=== PATIENT | female | born 1960 | race Caucasian/White ===

== ENCOUNTER 2016-04-13 22:14 | Inpatient (IN) | payer MEDICAID ==
[2016-04-13 22:34] VITALS: BMI 25.0
[2016-04-13] MEDS ORDERED: SODIUM CHLORIDE 0.9% 10 ML FLUSH FLUSH PRN (23:02)
[2016-04-13 23:23] LABS: % OXYHEMOGLOBIN 93.1 % (95-98); ABG Draw Tech BKL; ALLEN'S TEST PASS; BEb 6.7 (+/- 2); CARBOXY HGB 3.1; O2 CONCENTRATION 15.6 VOL % (15.7-21.6); TCO2 34.4 MMOL/L (23-27)
[2016-04-13 23:24] LABS: ABG Draw Site Right Radial
[2016-04-13 23:59] LABS: AUTOMATED BASOPHIL 0.4 % (0-2); AUTOMATED EOSINOPHIL 1.5 % (0-5); AUTOMATED LYMPH 11.3 % (17-44); AUTOMATED MONOCYTE 9.5 % (3-10); AUTOMATED NEUTROPHIL 77.3 % (45-76); MPV 8.2 fL (7.4-10.4)
[2016-04-14] MEDS ORDERED: METHYLPREDNISOLONE 125 MG/2 ML VIAL IV ONE (00:06)
[2016-04-14] MEDS ORDERED: CEFTRIAXONE 1 GM in D5W 100 ML IV ONE (00:06)
[2016-04-14] MEDS ORDERED: Albuterol/Ipratropium Neb 3 ML NEB NEB ONE (00:06)
[2016-04-14] MEDS ORDERED: AZITHROMYCIN 500 MG in D5W 250 ML IV ONE (00:06)
--- NOTE | 2016-04-14 00:06 | EDPRACDOC ---
- General Information Information Source: Patient Mode Of Arrival: Car - History of Present Illness Onset: WEEKS HPI: PT PRESENTS TODAY WITH SHOB X 3 WEEKS. PT STATES SHE SEEN [facility] FOR THIS AND PRESCRIBED LEVAQUIN AND PREDNISONE, BUT IS NOT TAKING IT PRESCRIBED AND HAS NOT IMPROVED. STATES THAT LAST NIGHT SHE WAS SO SHOB SHE HAD TO "TURN MY OXYGEN UP ALL THE WAY". PT USUALLY WEARS 3 LMP. PT CONTINUES TO SMOKE. Shortness of Breath: Moderate Relevant History: Reports: COPD Cough: Reports: Productive, Green Rhinorrhea: Reports: None Ear Symptoms: Reports: None SOB Worsens with: Reports: Exertion, Coughing, ESCOBAR SOB Improves with: Reports: Rest Associated Signs and symptoms: Reports: Cough <Emmy Pond - Last Filed: 04/14/16 02:20> <Marco A Guaman - Last Filed: 04/14/16 02:23> - General Information Chief Complaint: Dyspnea/Resp distress Stated Complaint: SHOB Time Seen by Provider: 04/13/16 22:48 Home Medications: Home Medications Ascorbic Acid [Vitamin C] 1,000 mg PO BID 02/20/14 Gabapentin 600 mg PO TID 02/20/14 Lorazepam [Ativan] 0.5 - 1 mg PO DAILY PRN 02/20/14 Alendronate Sodium [Fosamax] 70 mg PO FR 01/14/15 Bupropion HCl [Wellbutrin Sr] 150 mg PO BID 01/14/15 Calcium Carbonate/Vitamin D3 [Calcium 600-Vit D3 800 Tablet] 1 tab PO BID Cyclobenzaprine HCl [Flexeril] 5 mg PO Q8H PRN 01/14/15 Fish Oil/Dha/Epa [Fish Oil 1,200 mg Fish Oil] 1 cap PO BID 01/14/15 Hydrocodone Bit/Acetaminophen [[place] 7.5-325 Tablet] 1 tab PO Q8H PRN 01/14/15 Lactobacillus Combination No.4 [Probiotic] 1 cap PO DAILY 01/14/15 Levothyroxine [Synthroid, Levoxyl] 50 mcg PO DAILY 01/14/15 Loratadine/Pseudoephedrine Sul [Claritin-D 12 Hour Tab SA] 1 tab PO Q12H Meloxicam 15 mg PO DAILY 01/14/15 Multivitamin [One-A-Day Essential] 1 tab PO DAILY 01/14/15 Promethazine [Phenergan] 25 mg PO QID PRN 01/14/15 Ropinirole HCl [Requip] 1 mg PO HS 01/14/15 Trazodone HCl [Oleptro ER] 75 mg PO HS 01/14/15 Zinc 50 mg PO BID 01/14/15 Albuterol Sulfate [Ventolin Hfa] 4 puff INH Q4H PRN #1 hfa.aer.ad 01/15/15 Paroxetine HCl [Paxil] 40 mg PO DAILY 05/30/15 Cyclobenzaprine HCl [Flexeril] 10 mg PO TID PRN #20 tablet 09/04/15 Prednisone [Deltasone, Orasone] 40 mg PO DAILY 5 Days 09/04/15 Cyclobenzaprine HCl [Flexeril] 10 mg PO TID #21 tab 01/16/16 Ketorolac Tromethamine [Toradol] 10 mg PO Q6H PRN #12 tab 01/16/16 Allergies/Adverse Reactions: Allergies Allergy/AdvReac Type Severity Reaction Status Date / Time morphine Allergy sick Verified 09/04/15 21:13 ED Past Medical History - History Reviewed Yes Nurses notes reviewed and agree except as marked - Patient Medical History Respiratory History: Reports: COPD Psychological History: Reports: Anxiety, Bipolar Disorder (borderline). Denies : Depression, Substance Use Disorder Systemic History: Reports: Cancer (MELONOMA RT ARM), Hypothyroidism. Denies: Diabetes Additional Past Medical History: CHRONIC BACK PAIN Surgical History: Reports: Cholecystectomy. Denies: Hysterectomy - Family Medical History Reports: Hypertension (Mother), Diabetes (Father and multiple sibs.), Cancer ( grandfather, prostate cancer), Cardiac Disorders (Father from complications of ID at 55 years old, Mother with VHD) - Social Medical History Smoking Status: Heavy tobacco smoker (5 or more cigarettes/day or daily pipe/ cigar) Social History: Denies: Substance Use Disorder <Emmy Pond - Last Filed: 04/14/16 02:20> EDM Review of Systems - Review of Systems ROS Negative Except as Marked: Yes All systems reviewed and were negative except as marked Constitutional: Fatigue, Weakness Eyes: No Symptoms Reported Ears: No Symptoms Reported Throat: No Symptoms Reported Nose: No Symptoms Reported Respiratory: Cough, Shortness of Breath, Wheezing Cardiovascular: No Symptoms Reported Gastrointestinal: No Symptoms Reported Neurological: No Symptoms Reported Musculoskeletal: No Symptoms Reported Integumentary: No Symptoms Reported <DejahEmmy - Last Filed: 04/14/16 02:20> - Physical Exam Constitutional: Alert (Awake), No apparent distress Oriented to: Time, Person, Place Last recorded Vital Signs: Last Vital Signs Temp 99.4 F 04/13/16 22:28 Pulse 94 04/13/16 22:28 Resp 22 04/13/16 22:28 BP 120/66 04/13/16 22:28 Pulse Ox 95 04/13/16 22:28 Oxygen Pulse Oxygen Saturation 95 O2 Device Nasal Cannula Oxygen Flow Rate 3 Fraction of Inspired Oxygen ( FIO2) - HEENT Head: Normal Eye Exam: Normal Oropharynx: Normal Tympanic Membrane: Normal ENT EAC: Normal Nose: No Symptoms Reported Neck: Normal, Denies Pain, Midline - Respiratory/Cardiovascular Respiratory: Diminished (AT BILATERAL BASES), Rhonchi, Wheezes Cardiovascular: Normal - GI Palpation: Normal Tenderness: Non tender - Musculoskeletal Back: Normal Extremities: Normal - Integumentary Skin: Normal Lymphatics: Normal - Neurologic Cerebellar: Normal Mood Description: Normal Thought: Coherent Perception: Normal <Emmy Pond - Last Filed: 04/14/16 02:20> - Physical Exam Last recorded Vital Signs: Last Vital Signs Temp 99.4 F 04/13/16 22:28 Pulse 94 04/13/16 22:28 Resp 22 04/13/16 22:28 BP 120/66 04/13/16 22:28 Pulse Ox 95 04/13/16 22:28 Oxygen Pulse Oxygen Saturation 95 O2 Device Nasal Cannula Oxygen Flow Rate 3 Fraction of Inspired Oxygen ( FIO2) <Marco A Guaman - Last Filed: 04/14/16 02:23> ED SOB MDM - Results Result Diagrams: 04/13/16 23:37 04/13/16 23:37 Results: Puncture Site Right radial 04/13/16 23:15 pCO2 53.0 mmHg (35-45) H 04/13/16 23:15 pO2 77.0 mmHg (80-100) L 04/13/16 23:15 HCO3 32.8 MMOL/L (22-26) H 04/13/16 23:15 Total CO2 34.4 MMOL/L (23-27) H 04/13/16 23:15 Base Excess 6.7 (+/- 2) H 04/13/16 23:15 Collected by Bkl 04/13/16 23:15 ABG pH 7.400 pH UNITS (7.35-7.45) 04/13/16 23:15 ABG Oxyhemoglobin 93.1 % (95-98) L 04/13/16 23:15 ABG Carboxyhemoglobin 3.1 04/13/16 23:15 ABG Methemoglobin 1.0 % (<3.0) 04/13/16 23:15 Total O2 Concentration 15.6 VOL % (15.7-21.6) L 04/13/16 23:15 Lab Results 04/13/16 23:15 Puncture Site Right radial pCO2 53.0 H pO2 77.0 L HCO3 32.8 H Total CO2 34.4 H Base Excess 6.7 H Collected by Bkl ABG pH 7.400 ABG Oxyhemoglobin 93.1 L ABG Carboxyhemoglobin 3.1 ABG Methemoglobin 1.0 Total O2 Concentration 15.6 L - EKG EKG #1 EKG Time: 22:46 -: Yes EKG interpreted by me Rate: bpm: 94 [place]: Normal Rhythm: NSR Block: None Hypertrophy: None ST: Normal Comparison: 05/30/15 <Emmy Pond - Last Filed: 04/14/16 02:20> - Results Result Diagrams: 04/13/16 23:37 04/13/16 23:37 Results: WBC 8.3 xk/uL (3.8-10.8) 04/13/16 23:37 RBC 3.97 xM/uL (4.20-5.40) L 04/13/16 23:37 Hgb 13.3 g/dL (12.0-16.0) 04/13/16 23:37 Hct 39.3 % (36-47) 04/13/16 23:37 MCV 99 fL (81-99) 04/13/16 23:37 MCH 33.5 pg (27-32) H 04/13/16 23:37 MCHC 33.8 g/dl (33-36) 04/13/16 23:37 RDW 14.4 % (11.5-14.5) 04/13/16 23:37 Plt Count 73 xk/uL (130-400) L 04/13/16 23:37 MPV 8.2 fL (7.4-10.4) 04/13/16 23:37 Neut % (Auto) 77.3 % (45-76) H 04/13/16 23:37 Lymph % (Auto) 11.3 % (17-44) L 04/13/16 23:37 Reagan % (Auto) 9.5 % (3-10) 04/13/16 23:37 Eos % (Auto) 1.5 % (0-5) 04/13/16 23:37 Baso % (Auto) 0.4 % (0-2) 04/13/16 23:37 Absolute Neuts (auto) 6.39 xk/uL (1.7-8.2) 04/13/16 23:37 Absolute Lymphs (auto) 0.91 xk/uL (0.65-4.75) 04/13/16 23:37 Platelet Estimate Dec (NORMAL) 04/13/16 23:37 RBC Morphology 1+ aniso 04/13/16 23:37 PT 11.2 SEC (9.2-11.2) 04/13/16 23:37 INR 1.1 04/13/16 23:37 APTT 27.2 SEC (22-35) 04/13/16 23:37 Puncture Site Right radial 04/13/16 23:15 pCO2 53.0 mmHg (35-45) H 04/13/16 23:15 pO2 77.0 mmHg (80-100) L 04/13/16 23:15 HCO3 32.8 MMOL/L (22-26) H 04/13/16 23:15 Total CO2 34.4 MMOL/L (23-27) H 04/13/16 23:15 Base Excess 6.7 (+/- 2) H 04/13/16 23:15 Collected by Bkl 04/13/16 23:15 ABG pH 7.400 pH UNITS (7.35-7.45) 04/13/16 23:15 ABG Oxyhemoglobin 93.1 % (95-98) L 04/13/16 23:15 ABG Carboxyhemoglobin 3.1 04/13/16 23:15 ABG Methemoglobin 1.0 % (<3.0) 04/13/16 23:15 Total O2 Concentration 15.6 VOL % (15.7-21.6) L 04/13/16 23:15 Sodium 137 mEq/L (137-146) 04/13/16 23:37 Potassium 3.6 mEq/L (3.5-5.1) 04/13/16 23:37 Chloride 100 mEq/L (98-107) 04/13/16 23:37 Carbon Dioxide 32 mMOL/L (22-33) 04/13/16 23:37 Anion Gap 9 mEq/L (8-16) 04/13/16 23:37 BUN 8 MG/DL (7-17) 04/13/16 23:37 Creatinine 0.60 MG/DL (0.52-1.04) 04/13/16 23:37 Estimated GFR (MDRD) > 60 mL/min (>=60) 04/13/16 23:37 Glucose 81 mg/dL (70-99) 04/13/16 23:37 Calculated Osmolality 261 MOs/Kg (270-290) L 04/13/16 23:37 Calcium 8.4 MG/DL (8.4-10.2) 04/13/16 23:37 Corrected Calcium 8.8 MG/DL (8.4-10.2) 04/13/16 23:37 Total Bilirubin 0.8 MG/DL (0.2-1.3) 04/13/16 23:37 AST 24 IU/L (14-36) 04/13/16 23:37 ALT 24 IU/L (9-52) 04/13/16 23:37 Alkaline Phosphatase 49 IU/L (38-126) 04/13/16 23:37 Troponin I < 0.01 ng/mL (<.04) 04/13/16 23:37 Total Protein 6.3 G/DL (6.3-8.2) 04/13/16 23:37 Albumin 3.6 G/DL (3.5-5.0) 04/13/16 23:37 Lab Results 04/13/16 04/13/16 04/13/16 23:37 23:37 23:37 WBC 8.3 RBC 3.97 L Hgb 13.3 Hct 39.3 MCV 99 MCH 33.5 H MCHC 33.8 RDW 14.4 Plt Count 73 L MPV 8.2 Neut % (Auto) 77.3 H Lymph % (Auto) 11.3 L [place] % (Auto) 9.5 Eos % (Auto) 1.5 Baso % (Auto) 0.4 Absolute Neuts (auto) 6.39 Absolute Lymphs (auto) 0.91 Platelet Estimate Dec RBC Morphology 1+ aniso PT 11.2 INR 1.1 APTT 27.2 Puncture Site pCO2 pO2 HCO3 Total CO2 Base Excess Collected by ABG pH ABG Oxyhemoglobin ABG Carboxyhemoglobin ABG Methemoglobin Total O2 Concentration Sodium 137 Potassium 3.6 Chloride 100 Carbon Dioxide 32 Anion Gap 9 BUN 8 Creatinine 0.60 Estimated GFR (MDRD) > 60 Glucose 81 Calculated Osmolality 261 L Calcium 8.4 Corrected Calcium 8.8 Total Bilirubin 0.8 AST 24 ALT 24 Alkaline Phosphatase 49 Troponin I < 0.01 Total Protein 6.3 Albumin 3.6 04/13/16 23:15 WBC RBC Hgb Hct MCV MCH MCHC RDW Plt Count MPV Neut % (Auto) Lymph % (Auto) Reagan % (Auto) Eos % (Auto) Baso % (Auto) Absolute Neuts (auto) Absolute Lymphs (auto) Platelet Estimate RBC Morphology PT INR APTT Puncture Site Right radial pCO2 53.0 H pO2 77.0 L HCO3 32.8 H Total CO2 34.4 H Base Excess 6.7 H Collected by Bkl ABG pH 7.400 ABG Oxyhemoglobin 93.1 L ABG Carboxyhemoglobin 3.1 ABG Methemoglobin 1.0 Total O2 Concentration 15.6 L Sodium Potassium Chloride Carbon Dioxide Anion Gap BUN Creatinine Estimated GFR (MDRD) Glucose Calculated Osmolality Calcium Corrected Calcium Total Bilirubin AST ALT Alkaline Phosphatase Troponin I Total Protein Albumin <Marco A Guaman - Last Filed: 04/14/16 02:23> - Departure Disposition: Admit IP To This Hospital Decision to Admit Time: 02:21 Decision to admit date: 04/14/16 Decision to admit: from ED <Emmy Pond - Last Filed: 04/14/16 02:20> - Departure Yes I personally saw and evaluated the patient. Disposition: Admit IP To This Hospital - Physician Consulted Hospitalist Time Called: 02:23 Provider Called: Marky Sharp Time [employer]rim[employer] Returned Call: 02:23 <Marco A Guaman - Last Filed: 04/14/16 02:23> - Departure Condition: Stable Final Diagnosis: COPD with acute lower respiratory infection, Pneumonia Referrals: Kiara Muhammad MD [Primary Care Provider] - One Week Prescriptions: No Action Lorazepam [Ativan] 0.5 - 1 mg PO DAILY PRN PRN Reason: Anxiety Gabapentin 600 mg PO TID Ascorbic Acid [Vitamin C] 1,000 mg PO BID Alendronate Sodium [Fosamax] 70 mg PO FR Meloxicam 15 mg PO DAILY Lactobacillus Combination No.4 [Probiotic] 1 cap PO DAILY Promethazine [Phenergan] 25 mg PO QID PRN PRN Reason: Nausea Cyclobenzaprine HCl [Flexeril] 5 mg PO Q8H PRN PRN Reason: Muscle Spasms Fish Oil/Dha/Epa [Fish Oil 1,200 mg Fish Oil] 1 cap PO BID Zinc 50 mg PO BID Multivitamin [One-A-Day Essential] 1 tab PO DAILY Trazodone HCl [Oleptro ER] 75 mg PO HS Loratadine/Pseudoephedrine Sul [Claritin-D 12 Hour Tab SA] 1 tab PO Q12H Levothyroxine [Synthroid, Levoxyl] 50 mcg PO DAILY Ropinirole HCl [Requip] 1 mg PO HS Hydrocodone Bit/Acetaminophen [[place] 7.5-325 Tablet] 1 tab PO Q8H PRN PRN Reason: Pain Bupropion HCl [Wellbutrin Sr] 150 mg PO BID Calcium Carbonate/Vitamin D3 [Calcium 600-Vit D3 800 Tablet] 1 tab PO BID Albuterol Sulfate [Ventolin Hfa] 4 puff INH Q4H PRN #1 hfa.aer.ad PRN Reason: SHORTNESS OF BREATH Paroxetine HCl [Paxil] 40 mg PO DAILY Cyclobenzaprine HCl [Flexeril] 10 mg PO TID PRN #20 tablet PRN Reason: Muscle Spasms Prednisone [Deltasone, Orasone] 40 mg PO DAILY 5 Days Cyclobenzaprine HCl [Flexeril] 10 mg PO TID #21 tab Ketorolac Tromethamine [Toradol] 10 mg PO Q6H PRN #12 tab PRN Reason: Pain
[2016-04-14 00:08] LABS: PARTIAL THROMB. TIME 27.2 SEC (22-35); PT-INR 1.1
[2016-04-14 00:09] LABS: BLOOD UREA NITROGEN 8 MG/DL (7-17); CALC CORRECTED 8.8 MG/DL (8.4-10.2); CALCIUM 8.4 MG/DL (8.4-10.2); CALCULATED OSMOLALITY 261 MOs/Kg (270-290); CHLORIDE 100 mEq/L (98-107); GLUCOSE 81 mg/dL (70-99); SODIUM LEVEL 137 mEq/L (137-146); TOTAL PROTEIN 6.3 G/DL (6.3-8.2)
--- NOTE | 2016-04-14 00:31 | DIRPT ---
CLINICAL DATA: Cough, shortness of breath, chest pain and wheezing for 2 weeks. EXAM: CHEST 2 VIEW COMPARISON: Radiographs 03/18/2016, CT 05/30/2015 FINDINGS: Increased hyperinflation from prior. Increased bronchitic change. No confluent airspace disease. Heart at the upper limits normal in size. No pleural effusion or pneumothorax. No pulmonary edema. No acute osseous abnormalities. IMPRESSION: Increased hyperinflation and bronchitic change from prior exam, suggesting acute bronchitis. Electronically Signed By: Sylvia Vazquez M.D. On: 04/14/2016 00:28
[2016-04-14] MEDS ORDERED: ALBUTEROL 0.083% 3 ML NEB NEB STA (02:20)
--- NOTE | 2016-04-14 02:35 | HISTPHYS ---
- Chief Complaint shortness of breath - History of Present Illness PRIMARY CARE PROVIDER: Dr. Muhammad LIVER SPECIALIST: Dr. Stein at [facility] HPI: The patient is a 56 yo woman with COPD who presents with progressive shortness of breath. It started shortly after Jeni (over a month ago), and she has received multiple treatments by her primary care office and the urgent care. The treatments were prednisone tapers and various antibiotics. She has been using her inhalers/nebulizer but she did decrease use of these. Last night, she became much more short of breath, and felt like she could not breathe at all. She said she has an old oxygen tank at home from about 2014, so she tried to use it overnight, but when she got up in the morning, she could not breathe at all. She was using her nebulizer and she was so weak she could not move. She reports she continued to stay at home. She has a pulse oxygen machine at home and it showed O2 sats of 78%. Onset: Over 1 month ago but worse in the last 2 days. Duration: intermittent. Character: severe shortness of breath, even while sitting. Alleviated by: Nothing. Exacerbated by: walking. Associated Symptoms: Coughing. Wheezing. Shortness of breath. Diaphoresis. Treatments: none at home except usual medications. The patient reports that she used to drink alcohol heavily but quit 20 years ago , but then restarted about 2 weeks ago. She states she has been drinking most days since then, about 2-5 cans of beer per day. Her last dink was 2 days ago. - Medical History Respiratory History: Reports: COPD (and PUNCTURED R LUNG 2003.) GI/ History: Reports: Liver Failure (LIVER DISEASE. AUTOIMMUNE HEPATITIS 2010. ) Systemic History: Reports: Cancer (MELONOMA RT ARM), Hypothyroidism Psychological History: Reports: Anxiety, Bipolar Disorder (borderline) - Surgical History Reports: Cholecystectomy. Denies: Hysterectomy - Medictions/Allergies Allergies morphine Allergy (Verified 09/04/15 21:13) sick Current Medication List: Reviewed Home Medications Ascorbic Acid [Vitamin C] 1,000 mg PO BID 02/20/14 Gabapentin 600 mg PO TID 02/20/14 Lorazepam [Ativan] 0.5 - 1 mg PO DAILY PRN 02/20/14 Alendronate Sodium [Fosamax] 70 mg PO FR 01/14/15 Bupropion HCl [Wellbutrin Sr] 150 mg PO BID 01/14/15 Calcium Carbonate/Vitamin D3 [Calcium 600-Vit D3 800 Tablet] 1 tab PO BID Cyclobenzaprine HCl [Flexeril] 5 mg PO Q8H PRN 01/14/15 Fish Oil/Dha/Epa [Fish Oil 1,200 mg Fish Oil] 1 cap PO BID 01/14/15 Hydrocodone Bit/Acetaminophen [[place] 7.5-325 Tablet] 1 tab PO Q8H PRN 01/14/15 Lactobacillus Combination No.4 [Probiotic] 1 cap PO DAILY 01/14/15 Levothyroxine [Synthroid, Levoxyl] 50 mcg PO DAILY 01/14/15 Loratadine/Pseudoephedrine Sul [Claritin-D 12 Hour Tab SA] 1 tab PO Q12H Meloxicam 15 mg PO DAILY 01/14/15 Multivitamin [One-A-Day Essential] 1 tab PO DAILY 01/14/15 Promethazine [Phenergan] 25 mg PO QID PRN 01/14/15 Ropinirole HCl [Requip] 1 mg PO HS 01/14/15 Trazodone HCl [Oleptro ER] 75 mg PO HS 01/14/15 Zinc 50 mg PO BID 01/14/15 Albuterol Sulfate [Ventolin Hfa] 4 puff INH Q4H PRN #1 hfa.aer.ad 01/15/15 Paroxetine HCl [Paxil] 40 mg PO DAILY 05/30/15 Cyclobenzaprine HCl [Flexeril] 10 mg PO TID PRN #20 tablet 09/04/15 Prednisone [Deltasone, Orasone] 40 mg PO DAILY 5 Days 09/04/15 Cyclobenzaprine HCl [Flexeril] 10 mg PO TID #21 tab 01/16/16 Ketorolac Tromethamine [Toradol] 10 mg PO Q6H PRN #12 tab 01/16/16 - Family History Reports: Hypertension (Mother), Diabetes (Father and multiple sibs.), Cancer ( grandfather, prostate cancer), Cardiac Disorders (Father from complications of MD at 55 years old, Mother with VHD) - Social History Smoking Status: Heavy tobacco smoker (5 or more cigarettes/day or daily pipe/ cigar) (3/4 to 1 ppd. Started age 17 yo.) Social History: Reports: Alcohol Use. Denies: Substance Use Disorder - Review of Systems GENERAL: No Fever, chills. Diaphoresis. Positive for fatigue/malaise. HEENT: No ear pain or discharge. No nasal discharge or bleeding. No throat pain or swelling. No eye pain or eye redness. RESPIRATORY: Cough, wheezing, and shortness of breath. CARDIOVASCULAR: No chest pain or palpitations. GI: RUQ chronic since 2009. Chronic constipation. No nausea, vomiting, diarrhea , or bloody stool. NEUROLOGICAL: No headache or focal weakness. INTEGUMENT: no rashes, itching, or lesions. LYMPHATIC SYSTEM: no lymph node swelling or pain. MUSCULOSKELETAL: no new pain or joint swelling. GENITOURINARY: No dysuria or hematuria. ENDOCRINE: No polyuria but has polydipsia. HEME: No chronic anemia, bleeding. Positive for easy bruising. - Physical Exam Vital Signs: Initial Vitals Temperature 99.4 F 04/13/16 22:28 Pulse Rate 94 04/13/16 22:28 Respiratory Rate 22 04/13/16 22:28 Blood Pressure 120/66 04/13/16 22:28 Pulse Oxygen Saturation 95 04/13/16 22:28 Vital Signs - 24 hr 04/13/16 22:28 Temperature 99.4 F Pulse Rate 94 Respiratory 22 Rate Blood Pressure 120/66 Pulse Oxygen 95 Saturation Weight: 63.9 kg Height: 5 feet 3 inches BMI: 25 - Other Exam Other Exam Findings: GENERAL: Ill-appearing, well nourished, in acute distress. HEENT: Normocephalic, atraumatic; pupils equal and round. Nares patent, without discharge or bleeding. No oropharyngeal lesions or erythema. Mucous membranes are dry. NECK: is supple, no masses, trachea midline. RESPIRATORY: Clear to auscultation bilaterally. Chest wall movements are symmetric. Use of accessory muscles to breathe when she attempts to stand or take a few steps. Tachypnea. Bilateral scattered wheezing. Decreased breath sounds. CARDIOVASCULAR: Normal S1, S2. No murmurs, rubs, or gallops. PMI non-displaced. Carotids: no carotid bruits. No bradycardia or tachycardia. DP pulses 2+ bilaterally. GI: soft, non-distended, normal active bowel sounds. No hepatosplenomegaly. Mild right upper quadrant tenderness. INTEGUMENT: Clean, dry, and intact. No rashes. No lesions. MUSCULOSKELETAL: Moving all extremities. Clubbing. No cyanosis. Edema: none bilaterally. NEUROLOGICAL: Cranial nerves 2-12 grossly intact. Motor 4/5 throughout. Reflexes : 2+ bilaterally. Babinski: toes downgoing bilaterally. Intact Finger to nose. Sensory grossly intact to light touch. Intact rapid alternating movements bilaterally. No pronator drift. PSYCHIATRIC: Fully oriented. Anxious affect and tearful. LYMPHATIC: No cervical lymphadenopathy. No supraclavicular lymphadenopathy. - Lab Results Laboratory Results - last 24 hr 04/13/16 04/13/16 04/13/16 23:15 23:37 23:37 WBC 8.3 RBC 3.97 L Hgb 13.3 Hct 39.3 MCV 99 MCH 33.5 H MCHC 33.8 RDW 14.4 Plt Count 73 L MPV 8.2 Neut % (Auto) 77.3 H Lymph % (Auto) 11.3 L [place] % (Auto) 9.5 Eos % (Auto) 1.5 Baso % (Auto) 0.4 Absolute Neuts (auto) 6.39 Absolute Lymphs (auto) 0.91 Platelet Estimate Dec RBC Morphology 1+ aniso PT INR APTT Puncture Site Right radial pCO2 53.0 H pO2 77.0 L HCO3 32.8 H Total CO2 34.4 H Base Excess 6.7 H Collected by Bkl ABG pH 7.400 ABG Oxyhemoglobin 93.1 L ABG Carboxyhemoglobin 3.1 ABG Methemoglobin 1.0 Total O2 Concentration 15.6 L Sodium 137 Potassium 3.6 Chloride 100 Carbon Dioxide 32 Anion Gap 9 BUN 8 Creatinine 0.60 Estimated GFR (MDRD) > 60 Glucose 81 Calculated Osmolality 261 L Calcium 8.4 Corrected Calcium 8.8 Total Bilirubin 0.8 AST 24 ALT 24 Alkaline Phosphatase 49 Troponin I < 0.01 Total Protein 6.3 Albumin 3.6 04/13/16 23:37 WBC RBC Hgb Hct MCV MCH MCHC RDW Plt Count MPV Neut % (Auto) Lymph % (Auto) [place] % (Auto) Eos % (Auto) Baso % (Auto) Absolute Neuts (auto) Absolute Lymphs (auto) Platelet Estimate RBC Morphology PT 11.2 INR 1.1 APTT 27.2 Puncture Site pCO2 pO2 HCO3 Total CO2 Base Excess Collected by ABG pH ABG Oxyhemoglobin ABG Carboxyhemoglobin ABG Methemoglobin Total O2 Concentration Sodium Potassium Chloride Carbon Dioxide Anion Gap BUN Creatinine Estimated GFR (MDRD) Glucose Calculated Osmolality Calcium Corrected Calcium Total Bilirubin AST ALT Alkaline Phosphatase Troponin I Total Protein Albumin - Diagnostic Findings EK beats per minute. Normal sinus rhythm. Reviewed EKG personally. Chest x-ray, viewed personally: EXAM: CHEST 2 VIEW COMPARISON: Radiographs 03/18/2016, CT 05/30/2015 FINDINGS: Increased hyperinflation from prior. Increased bronchitic change. No confluent airspace disease. Heart at the upper limits normal in size. No pleural effusion or pneumothorax. No pulmonary edema. No acute osseous abnormalities. IMPRESSION: Increased hyperinflation and bronchitic change from prior exam, suggesting acute bronchitis. - Assessment (1) COPD exacerbation J44.1 - CHRONIC OBSTRUCTIVE PULMONARY DISEASE W (ACUTE) EXACERBATION Acute Present on Admission: Yes COPD exacerbation, severe. Plan: Nebs of Duoneb q 6 hours scheduled and albuterol q 2 hours prn. Sputum culture ordered. IV ceftriaxone and IV azithromycin. IV methylprednisolone. Continuous oxygen support. Keep sats below 95% due to COPD. (2) Dyspnea R06.00 - DYSPNEA, UNSPECIFIED Acute Present on Admission: Yes Plan: O2 by NC prn. (3) Tobacco abuse Z72.0 - TOBACCO USE Acute Present on Admission: Yes Counseled to quit. (4) Thrombocytopenia D69.6 - THROMBOCYTOPENIA, UNSPECIFIED Acute Present on Admission: Yes Acute on chronic issue. Mildly low. Plan: Monitor CBC. (5) Alcohol abuse F10.10 - ALCOHOL ABUSE, UNCOMPLICATED Acute Present on Admission: Yes Patient started drinking again 2 weeks ago after having quit for 20 years. Patient is very tearful and sorrowful about the fact that she started again. Plan: Detox protocol. Check blood alcohol level. Start patient on prn Ativan for breakthrough symptoms. Magnesium, phosphorus, other labs ordered. Give IV thiamine/folate/MVI now, then eventually start patient on PO thiamine/ MVI. Nurse to monitor patient closely and check withdrawal symptom scores. Patient advised to stop drinking but to do so under medical supervision because of DT's risk. Patient advised to take thiamine and multivitamin daily after discharge. Patient encouraged to return to Alcoholics Anonymous meetings and to reconnect with her sponsor. Case Care Discussed with: Patient, Nursing Staff
[2016-04-14] MEDS ORDERED: LORAZEPAM 2 MG/ML VIAL IV ONE (03:10)
[2016-04-14] MEDS ORDERED: Aluminum;Magnesium;Simethicone 30 ML UDC PO PRN (03:40)
[2016-04-14] MEDS ORDERED: BENZONATATE 100 MG PERLES PO PRN (03:40)
[2016-04-14] MEDS ORDERED: BISACODYL 5 MG TAB PO PRN (03:40)
[2016-04-14] MEDS ORDERED: TEMAZEPAM 15 MG CAP PO PRN (03:40)
[2016-04-14] MEDS ORDERED: GUAIFEN 100 MG-DEXTROMETH 10 MG PER 5 ML PO PRN (03:40)
[2016-04-14] MEDS ORDERED: PROMETHAZINE 25 MG/ML VIAL IV PRN (03:40)
[2016-04-14] MEDS ORDERED: SENNA CONCENTRATE TAB PO PRN (03:40)
[2016-04-14] MEDS ORDERED: ONDANSETRON HCL 4 MG/2 ML VIAL IV PRN (03:40)
[2016-04-14] MEDS ORDERED: ACETAMINOPHEN 325 MG SUPP PR PRN (03:40)
[2016-04-14] MEDS ORDERED: LORAZEPAM 2 MG/ML VIAL IV PRN ×3 (04:17)
[2016-04-14] MEDS ORDERED: LORAZEPAM 1 MG TAB PO PRN ×2 (04:17)
[2016-04-14] MEDS: NS 1,000 ML IV SCH (04:36)
[2016-04-14] MEDS: FOLIC ACID 1 MG, THIAMINE 100 MG, VITAMINS, MULTIPLE 10 ML in NS 1,000 ML IV SCH ×4 (04:46)
[2016-04-14] MEDS ORDERED: Alcohol Withdrawal Scale Orders XX SCH (05:00)
[2016-04-14 05:25] LABS: MPV 8.4 fL (7.4-10.4)
[2016-04-14] MEDS: ACETAMINOPHEN 325 MG/TAB TABLET PO PRN (05:35)
[2016-04-14 05:39] LABS: BLOOD UREA NITROGEN 8 MG/DL (7-17); CALCIUM 8.4 MG/DL (8.4-10.2); CALCULATED OSMOLALITY 266 MOs/Kg (270-290); CHLORIDE 101 mEq/L (98-107); GLUCOSE 133 mg/dL (70-99); SODIUM LEVEL 138 mEq/L (137-146)
[2016-04-14] MEDS ORDERED: LORATADINE PO SCH (06:45)
[2016-04-14] MEDS ORDERED: [UNRECOGNIZED DRUG - OTHER] PO SCH (06:45)
[2016-04-14 07:23] LABS: ETOH-MGDL < 10 mg/dL
[2016-04-14] MEDS ORDERED: Non-Formulary Medication ITEM (Gabapentin [Gabapentin] 600 MG) PO SCH (07:30)
[2016-04-14] MEDS: Albuterol/Ipratropium Neb 3 ML NEB NEB SCH ×3 (07:55→21:29)
[2016-04-14] MEDS: BUDESONIDE 0.5 MG NEB NEB SCH ×2 (08:00→21:34)
[2016-04-14] MEDS: POTASSIUM CHLORIDE 20 MEQ TAB PO SCH ×2 (08:23→17:17)
[2016-04-14] MEDS: OMEGA-3-ACID ETHYL ESTERS 1000 MG CAP PO SCH ×2 (08:23→20:14)
[2016-04-14] MEDS: PAROXETINE 20 MG TAB PO SCH (08:24)
[2016-04-14] MEDS: METHYLPREDNISOLONE 125 MG/2 ML VIAL IV SCH ×3 (08:24→17:18)
[2016-04-14] MEDS: BuPROPion (BID formulation) 100 MG TAB.SR.12H PO SCH ×2 (08:25→20:13)
[2016-04-14] MEDS: PSEUDOEPHEDRINE 120 MG PO SCH ×2 (08:25→20:12)
[2016-04-14] MEDS: Loratadine 10 MG TAB PO SCH ×2 (08:26→20:12)
[2016-04-14] MEDS: GABAPENTIN 300 MG CAP PO SCH ×3 (08:27→20:12)
[2016-04-14] MEDS: LEVOTHYROXINE 50 MCG (0.05 MG) TAB PO SCH (08:29)
[2016-04-14] MEDS: PANTOPRAZOLE 40 MG TAB PO SCH (08:30)
[2016-04-14] MEDS: MELOXICAM 7.5 MG TAB PO SCH (08:31)
[2016-04-14] MEDS: OXYCODONE (OxyCONTIN) 20 MG TAB PO SCH ×2 (08:34→20:11)
[2016-04-14] MEDS ORDERED: UBIDECARENONE 100 MG PO SCH (09:00)
[2016-04-14] MEDS ORDERED: EPA PO SCH (09:00)
[2016-04-14] MEDS ORDERED: DHA PO SCH (09:00)
[2016-04-14] MEDS ORDERED: Non-Formulary Medication ITEM (Meloxicam [Meloxicam] 15 MG) PO SCH (09:00)
[2016-04-14] MEDS ORDERED: PAROXETINE HCL 40 MG PO SCH (09:00)
[2016-04-14] MEDS ORDERED: Non-Formulary Medication ITEM (Omeprazole 20 MG) PO SCH (09:00)
[2016-04-14] MEDS ORDERED: Non-Formulary Medication ITEM (Budesonide/Formoterol Fumarate [Symbicort 160-4.5 Mcg Inh INH SCH (09:00)
[2016-04-14] MEDS ORDERED: BIOTIN 1 MG PO SCH (09:00)
[2016-04-14] MEDS ORDERED: MAGNESIUM 250 MG PO SCH (09:00)
[2016-04-14] MEDS ORDERED: Non-Formulary Medication ITEM (Ascorbic Acid [Vitamin C] 1,000 MG) PO SCH (09:00)
[2016-04-14] MEDS ORDERED: FISH OIL PO SCH (09:00)
[2016-04-14] MEDS: MAGNESIUM OXIDE 400 MG TAB PO SCH (11:12)
[2016-04-14] MEDS: ASCORBIC ACID 500 MG TAB PO SCH ×2 (11:13→17:17)
[2016-04-14] MEDS: CYCLOBENZAPRINE 5 MG TAB PO PRN (12:42)
[2016-04-14] MEDS: ENOXAPARIN 40 MG/0.4 ML PFS SQ SCH (14:58)
[2016-04-14] MEDS: ROPINIROLE 1 MG TAB PO SCH (20:13)
[2016-04-14] MEDS ORDERED: TRAZODONE 50 MG TAB PO SCH (21:00)
[2016-04-14] MEDS ORDERED: TRAZODONE HCL 75 MG PO SCH (21:00)
[2016-04-15] MEDS: METHYLPREDNISOLONE 125 MG/2 ML VIAL IV SCH ×5 (00:22→23:39)
[2016-04-15] MEDS: CEFTRIAXONE 1 GM in D5W 100 ML IV SCH ×2 (00:23→23:39)
[2016-04-15] MEDS: AZITHROMYCIN 500 MG in D5W 250 ML IV SCH (01:40)
[2016-04-15] MEDS: Albuterol/Ipratropium Neb 3 ML NEB NEB SCH ×4 (01:59→19:09)
[2016-04-15] MEDS: LORAZEPAM 1 MG TAB PO PRN ×2 (02:31→11:57)
[2016-04-15] MEDS: FOLIC ACID 1 MG, THIAMINE 100 MG, VITAMINS, MULTIPLE 10 ML in NS 1,000 ML IV SCH ×4 (04:13)
[2016-04-15] MEDS: NS 1,000 ML IV SCH ×3 (04:17→20:24)
[2016-04-15] MEDS: PANTOPRAZOLE 40 MG TAB PO SCH (05:56)
[2016-04-15] MEDS: GABAPENTIN 300 MG CAP PO SCH ×3 (05:56→20:26)
[2016-04-15] MEDS: BUDESONIDE 0.5 MG NEB NEB SCH ×2 (08:13→19:15)
[2016-04-15] MEDS: PSEUDOEPHEDRINE 120 MG PO SCH ×2 (08:23→20:26)
[2016-04-15] MEDS: Loratadine 10 MG TAB PO SCH ×2 (08:23→23:24)
[2016-04-15] MEDS: POTASSIUM CHLORIDE 20 MEQ TAB PO SCH ×2 (08:23→17:06)
[2016-04-15] MEDS: LEVOTHYROXINE 50 MCG (0.05 MG) TAB PO SCH (08:23)
[2016-04-15] MEDS: MELOXICAM 7.5 MG TAB PO SCH (08:23)
[2016-04-15] MEDS: OXYCODONE (OxyCONTIN) 20 MG TAB PO SCH ×2 (08:24→20:24)
[2016-04-15] MEDS: OMEGA-3-ACID ETHYL ESTERS 1000 MG CAP PO SCH ×2 (08:24→20:28)
[2016-04-15] MEDS: PAROXETINE 20 MG TAB PO SCH (08:27)
[2016-04-15] MEDS: BuPROPion (BID formulation) 100 MG TAB.SR.12H PO SCH ×2 (08:57→20:28)
[2016-04-15] MEDS ORDERED: NACL 0.65% NASAL 45 ML BOTTLE NAS PRN (11:17)
--- NOTE | 2016-04-15 11:27 | GENMEDPROG ---
Chief Complaint: R infracostal pleuritic pain hx beer abuse Notes Reviewed: Yes: Events from last night noted and discussed with Clinical Staff Current Medication List: Reviewed Currently: Reports: Cough, Wheezing, ESCOBAR, SOB DVT Prophylaxis: Yes - Physical Examination Vital Signs and I&O: Last Vital Signs Temp 98.3 F 04/15/16 05:54 Pulse 89 04/15/16 05:54 Resp 20 04/15/16 05:54 BP 131/79 04/15/16 05:54 Pulse Ox 96 04/15/16 08:00 Oxygen Pulse Oxygen Saturation 96 O2 Device Nasal Cannula Oxygen Flow Rate 2 Fraction of Inspired Oxygen ( FIO2) Intake & Output 04/12/16 04/13/16 04/14/16 04/15/16 23:59 23:59 23:59 23:59 Intake Total 2394 1909 Output Total 3400 1999 Balance -1006 -91 Patient's weight 65.516 kg 66.281 kg General: Alert, Oriented x3, No acute distress, Well appearing, Well nourished HEENT: Normal (Normocephalic, atraumatic;EOMI.Sclera white, Nares patent, without discharge or bleeding. No oropharyngeal lesions or erythema. Mucous membranes are dry.) Neck: Non-tender, Full range of motion, Normal Trachea alignment, Normal inspection (No cervical lymphadenopathy. No supraclavicular lymphadenopathy.), No Masses palpable, Supple Lymphatics: Normal Respiratory: Diminished, Rhonchi, Wheezes Cardiovascular: Regular rate and rhythm (No bradycardia or tachycardia), Normal S1, No Gallops,Rubs/Murmurs, Normal S2, Good Pedal Pulses (DP pulses 2+ bilaterally) GI: Normal bowel sounds (normal active sounds), Soft (non-distended), Non tender , No hepatospenomegaly, No masses Extremities/Musculoskeletal: Normal pulses (DP pulses 2+ bilaterally) Skin: Warm,Dry and Intact, No rashes, No significant lesion Neurological: Strength at 5/5 X4 ext (Motor 5/5 throughout.), Normal tone, Cranial nerves 3-12 NL ( 2-12 grossly intact.) Psych/Mental Status: Appropriate, Normal Affect Lab/DI/Studies Reviewed: 04/14/16 05:00 04/14/16 05:00 - Assessment (1) Bronchopneumonia Acute J18.0 - BRONCHOPNEUMONIA, UNSPECIFIED ORGANISM Comment/Plan: Antibiotics (2) Alcohol abuse Acute F10.10 - ALCOHOL ABUSE, UNCOMPLICATED Comment/Plan: Patient started drinking again 2 weeks ago after having quit for 20 years. Patient is very tearful and sorrowful about the fact that she started again. Plan: Detox protocol. Patient on prn Ativan for breakthrough symptoms. Magnesium, phosphorus, other labs ordered. Give IV thiamine/folate/MVI now, then eventually start patient on PO thiamine/ MVI. Nurse to monitor patient closely and check withdrawal symptom scores. Patient advised to stop drinking but to do so under medical supervision because of DT's risk. Patient advised to take thiamine and multivitamin daily after discharge. Patient encouraged to return to Alcoholics Anonymous meetings and to reconnect with her sponsor. (3) COPD exacerbation Acute J44.1 - CHRONIC OBSTRUCTIVE PULMONARY DISEASE W (ACUTE) EXACERBATION Comment/Plan: COPD exacerbation, severe. Plan: Nebs of Duoneb q 6 hours scheduled and albuterol q 2 hours prn. Sputum culture ordered. IV ceftriaxone and IV azithromycin. IV methylprednisolone. Continuous oxygen support. Keep sats below 95% due to COPD. (4) Dyspnea Acute R06.00 - DYSPNEA, UNSPECIFIED Qualifiers: Dyspnea type: dyspnea on exertion Qualified Code(s): R06.09 - Other forms of dyspnea Comment/Plan: Plan: O2 by [place] prn. (5) Tobacco abuse Acute Z72.0 - TOBACCO USE Comment/Plan: Counseled to quit and spent more than 10 minutes time discussing this. Case Care Discussed with: Patient, Nursing Staff, Resource Management Education/Counseling Given To: Patient Education/Counseling Given Regarding: Diagnosis, Treatment Total Time: spent 38 min + 10 min discussion smoking cessation Critical Care: No Code: 36631 (12+) (407)
[2016-04-15] MEDS ORDERED: KETOROLAC TROMETHAMINE 10 MG TAB PO PRN (11:29)
[2016-04-15] MEDS ORDERED: LORAZEPAM 1 MG TAB PO PRN (11:29)
[2016-04-15] MEDS: ALBUTEROL 0.083% 3 ML NEB NEB PRN ×2 (11:49→17:29)
[2016-04-15] MEDS: MAGNESIUM OXIDE 400 MG TAB PO SCH (11:58)
[2016-04-15] MEDS ORDERED: Vaccine Screening Complete SCH (12:00)
[2016-04-15] MEDS: ACETAMINOPHEN 325 MG/TAB TABLET PO PRN (12:00)
[2016-04-15] MEDS: ASCORBIC ACID 500 MG TAB PO SCH ×2 (12:00→17:07)
[2016-04-15] MEDS: PROBIOTIC BLEND TAB PO SCH ×2 (12:09→17:07)
[2016-04-15] MEDS: VITAMINS, MULTIPLE CAP PO SCH (12:09)
[2016-04-15] MEDS: CALCIUM CARBONATE + VITAMIN D 500 MG TAB PO SCH ×2 (12:09→17:07)
[2016-04-15] MEDS: OXYMETAZOLINE 0.05% NASAL SPRAY NAS SCH ×2 (12:09→20:25)
[2016-04-15] MEDS: NICOTINE 21 MG PATCH TOP SCH (13:43)
[2016-04-15] MEDS: ENOXAPARIN 40 MG/0.4 ML PFS SQ SCH (17:07)
[2016-04-15] MEDS: TRAZODONE 50 MG TAB PO SCH (20:26)
[2016-04-15] MEDS: ROPINIROLE 1 MG TAB PO SCH (20:26)
[2016-04-15] MEDS: CYCLOBENZAPRINE 5 MG TAB PO PRN (20:29)
[2016-04-15] MEDS ORDERED: [UNRECOGNIZED DRUG - OTHER] PO SCH (21:00)
[2016-04-15] MEDS ORDERED: CALCIUM CARBONATE PO SCH (21:00)
[2016-04-15] MEDS ORDERED: VITAMIN D3 PO SCH (21:00)
[2016-04-16] MEDS: NS 1,000 ML IV SCH ×2 (00:46→13:34)
[2016-04-16] MEDS: Albuterol/Ipratropium Neb 3 ML NEB NEB SCH ×4 (01:28→20:19)
[2016-04-16] MEDS: AZITHROMYCIN 500 MG in D5W 250 ML IV SCH (01:37)
[2016-04-16] MEDS: LORAZEPAM 1 MG TAB PO PRN ×2 (03:48→12:16)
[2016-04-16] MEDS: ACETAMINOPHEN 325 MG/TAB TABLET PO PRN ×2 (03:48→10:46)
[2016-04-16] MEDS: FOLIC ACID 1 MG, THIAMINE 100 MG, VITAMINS, MULTIPLE 10 ML in NS 1,000 ML IV SCH ×4 (05:33)
[2016-04-16] MEDS: PANTOPRAZOLE 40 MG TAB PO SCH (05:34)
[2016-04-16] MEDS: GABAPENTIN 300 MG CAP PO SCH ×3 (05:34→21:44)
[2016-04-16] MEDS: METHYLPREDNISOLONE 125 MG/2 ML VIAL IV SCH ×3 (05:34→18:05)
[2016-04-16] MEDS: MELOXICAM 7.5 MG TAB PO SCH (08:49)
[2016-04-16] MEDS: OXYCODONE (OxyCONTIN) 20 MG TAB PO SCH ×2 (08:49→20:38)
[2016-04-16] MEDS: OXYMETAZOLINE 0.05% NASAL SPRAY NAS SCH ×2 (08:50→21:41)
[2016-04-16] MEDS: POTASSIUM CHLORIDE 20 MEQ TAB PO SCH ×2 (08:50→17:28)
[2016-04-16] MEDS: Loratadine 10 MG TAB PO SCH (08:50)
[2016-04-16] MEDS: PAROXETINE 20 MG TAB PO SCH (08:51)
[2016-04-16] MEDS: PSEUDOEPHEDRINE 120 MG PO SCH ×2 (08:51→21:44)
[2016-04-16] MEDS: OMEGA-3-ACID ETHYL ESTERS 1000 MG CAP PO SCH ×2 (08:51→21:43)
[2016-04-16] MEDS: BuPROPion (BID formulation) 100 MG TAB.SR.12H PO SCH ×2 (08:52→21:43)
[2016-04-16] MEDS: LEVOTHYROXINE 50 MCG (0.05 MG) TAB PO SCH (08:52)
[2016-04-16] MEDS ORDERED: VIT A C PO SCH (09:00)
[2016-04-16] MEDS ORDERED: MULTIVITAMIN PO SCH (09:00)
[2016-04-16] MEDS ORDERED: LUTEIN PO SCH (09:00)
[2016-04-16] MEDS ORDERED: MINERALS PO SCH (09:00)
[2016-04-16] MEDS ORDERED: [UNRECOGNIZED DRUG - OTHER] PO SCH (09:00)
[2016-04-16] MEDS: BUDESONIDE 0.5 MG NEB NEB SCH ×2 (09:30→20:22)
--- NOTE | 2016-04-16 11:10 | GENMEDPROG ---
Chief Complaint: mild epigast pain constipation sob some better Notes Reviewed: Yes: Events from last night noted and discussed with Clinical Staff Current Medication List: Reviewed Currently: Reports: Cough, Wheezing, ESCOBAR, SOB DVT Prophylaxis: Yes - Physical Examination Vital Signs and I&O: Last Vital Signs Temp 98.3 F 04/16/16 06:00 Pulse 82 04/16/16 06:00 Resp 20 04/16/16 06:00 BP 111/66 04/16/16 06:00 Pulse Ox 96 04/16/16 09:31 Oxygen Pulse Oxygen Saturation 96 O2 Device Nasal Cannula Oxygen Flow Rate 2 Fraction of Inspired Oxygen ( FIO2) Intake & Output 04/13/16 04/14/16 04/15/16 04/16/16 23:59 23:59 23:59 23:59 Intake Total 2394 2899 1208 Output Total 3400 5200 1300 Balance -1006 -2301 -92 Patient's weight 65.516 kg 66.281 kg 69.031 kg General: Alert, Oriented x3, No acute distress, Well appearing, Well nourished HEENT: Normal (Normocephalic, atraumatic;EOMI.Sclera white, Nares patent, without discharge or bleeding. No oropharyngeal lesions or erythema. Mucous membranes are dry.) Neck: Non-tender, Full range of motion, Normal Trachea alignment, Normal inspection (No cervical lymphadenopathy. No supraclavicular lymphadenopathy.), No Masses palpable, Supple Lymphatics: Normal Respiratory: Diminished, Rhonchi (w/ cough), Wheezes Cardiovascular: Regular rate and rhythm (No bradycardia or tachycardia), Normal S1, No Gallops,Rubs/Murmurs, Normal S2, Good Pedal Pulses (DP pulses 2+ bilaterally) GI: Normal bowel sounds (normal active sounds), Soft (non-distended), Non tender , No hepatospenomegaly, No masses Extremities/Musculoskeletal: Normal pulses (DP pulses 2+ bilaterally) Skin: Warm,Dry and Intact, No rashes, No significant lesion Neurological: Strength at 5/5 X4 ext (Motor 5/5 throughout.), Normal tone, Cranial nerves 3-12 NL ( 2-12 grossly intact.) Psych/Mental Status: Appropriate, Normal Affect Lab/DI/Studies Reviewed: 04/14/16 05:00 04/14/16 05:00 - Assessment (1) Bronchopneumonia Acute J18.0 - BRONCHOPNEUMONIA, UNSPECIFIED ORGANISM Comment/Plan: Antibiotics (2) Alcohol abuse Acute F10.10 - ALCOHOL ABUSE, UNCOMPLICATED Comment/Plan: Patient started drinking again 2 weeks ago after having quit for 20 years. Patient is very tearful and sorrowful about the fact that she started again. Plan: Detox protocol. Patient on prn Ativan for breakthrough symptoms. Magnesium, phosphorus, other labs ordered. Give IV thiamine/folate/MVI now, then eventually start patient on PO thiamine/ MVI. Nurse to monitor patient closely and check withdrawal symptom scores. Patient advised to stop drinking but to do so under medical supervision because of DT's risk. Patient advised to take thiamine and multivitamin daily after discharge. Patient encouraged to return to Alcoholics Anonymous meetings and to reconnect with her sponsor. (3) COPD exacerbation Acute J44.1 - CHRONIC OBSTRUCTIVE PULMONARY DISEASE W (ACUTE) EXACERBATION Comment/Plan: COPD exacerbation, severe. Plan: Nebs of Duoneb q 6 hours scheduled and albuterol q 2 hours prn. Sputum culture ordered. IV ceftriaxone and IV azithromycin. IV methylprednisolone. Continuous oxygen support. Keep sats below 95% due to COPD. (4) Constipation Acute K59.00 - CONSTIPATION, UNSPECIFIED Qualifiers: Constipation type: slow transit constipation Qualified Code(s): K59.01 - Slow transit constipation Comment/Plan: miralax and mg citrate should get things moving. (5) Dyspnea Acute R06.00 - DYSPNEA, UNSPECIFIED Qualifiers: Dyspnea type: dyspnea on exertion Qualified Code(s): R06.09 - Other forms of dyspnea Comment/Plan: Plan: O2 by [place] prn. (6) Tobacco abuse Acute Z72.0 - TOBACCO USE Comment/Plan: Counseled to quit and spent more than 10 minutes time discussing this. (7) Autoimmune hepatitis Acute K75.4 - AUTOIMMUNE HEPATITIS Comment/Plan: Sees Dr. Stein at [facility] since 2010 for her autoimmune hepatitis. Unfortunately she also imbibes in alcohol which complicates her liver disease. (8) Malignant melanoma of right forearm Acute C43.61 - MALIGNANT MELANOMA OF RIGHT UPPER LIMB, INCLUDING SHOULDER Comment/Plan: Indicates to me that she thinks they got all of her melanoma of the right forearm with surgery. Case Care Discussed with: Patient, Nursing Staff, Resource Management Education/Counseling Given To: Patient Education/Counseling Given Regarding: Diagnosis, Treatment Total Time: 38 min Critical Care: No Code: 18143 (12+)
[2016-04-16] MEDS ORDERED: MAGNESIUM CITRATE 10 OZ BOTTLE PO ONE (12:00)
[2016-04-16] MEDS: PROBIOTIC BLEND TAB PO SCH ×2 (12:12→17:28)
[2016-04-16] MEDS: MAGNESIUM OXIDE 400 MG TAB PO SCH (12:12)
[2016-04-16] MEDS: FEXOFENADINE HCL 180 MG TAB PO SCH (12:12)
[2016-04-16] MEDS: PEG-ELECTROLYTE 17 GM PACK PO SCH ×2 (12:13→17:28)
[2016-04-16] MEDS: CALCIUM CARBONATE + VITAMIN D 500 MG TAB PO SCH ×2 (12:13→17:29)
[2016-04-16] MEDS: ASCORBIC ACID 500 MG TAB PO SCH ×2 (12:14→17:29)
[2016-04-16] MEDS: NICOTINE 21 MG PATCH TOP SCH (12:14)
[2016-04-16] MEDS: VITAMINS, MULTIPLE CAP PO SCH (12:15)
[2016-04-16] MEDS: ENOXAPARIN 40 MG/0.4 ML PFS SQ SCH (17:28)
[2016-04-16] MEDS: TRAMADOL HCL 50 MG TAB PO PRN (18:04)
[2016-04-16] MEDS: TRAZODONE 50 MG TAB PO SCH (21:42)
[2016-04-16] MEDS: CYCLOBENZAPRINE 5 MG TAB PO PRN (21:44)
[2016-04-16] MEDS: ROPINIROLE 1 MG TAB PO SCH (21:44)
[2016-04-17] MEDS: CEFTRIAXONE 1 GM in D5W 100 ML IV SCH (00:19)
[2016-04-17] MEDS: METHYLPREDNISOLONE 125 MG/2 ML VIAL IV SCH ×2 (00:20→06:05)
[2016-04-17] MEDS: Albuterol/Ipratropium Neb 3 ML NEB NEB SCH ×3 (02:09→14:10)
[2016-04-17] MEDS: AZITHROMYCIN 500 MG in D5W 250 ML IV SCH (02:25)
[2016-04-17] MEDS: TRAMADOL HCL 50 MG TAB PO PRN (02:57)
[2016-04-17] MEDS: NS 1,000 ML IV SCH ×2 (04:14→04:51)
[2016-04-17] MEDS: PANTOPRAZOLE 40 MG TAB PO SCH (06:05)
[2016-04-17] MEDS: GABAPENTIN 300 MG CAP PO SCH (06:05)
[2016-04-17] MEDS: BUDESONIDE 0.5 MG NEB NEB SCH (07:46)
[2016-04-17] MEDS: POTASSIUM CHLORIDE 20 MEQ TAB PO SCH (08:53)
[2016-04-17] MEDS: OXYMETAZOLINE 0.05% NASAL SPRAY NAS SCH (08:53)
[2016-04-17] MEDS: FEXOFENADINE HCL 180 MG TAB PO SCH (08:54)
[2016-04-17] MEDS: OMEGA-3-ACID ETHYL ESTERS 1000 MG CAP PO SCH (08:56)
[2016-04-17] MEDS: MELOXICAM 7.5 MG TAB PO SCH (08:57)
[2016-04-17] MEDS: PSEUDOEPHEDRINE 120 MG PO SCH (08:58)
[2016-04-17] MEDS: LEVOTHYROXINE 50 MCG (0.05 MG) TAB PO SCH (08:58)
[2016-04-17] MEDS: PAROXETINE 20 MG TAB PO SCH (08:58)
[2016-04-17] MEDS: BuPROPion (BID formulation) 100 MG TAB.SR.12H PO SCH (08:59)
[2016-04-17] MEDS: OXYCODONE (OxyCONTIN) 20 MG TAB PO SCH (09:02)
[2016-04-17] MEDS: ALBUTEROL 0.083% 3 ML NEB NEB PRN (11:39)
--- NOTE | 2016-04-17 11:54 | PCM.DCS92 ---
- Final/Secondary Discharge Diagnosis (1) Bronchopneumonia Acute J18.0 - BRONCHOPNEUMONIA, UNSPECIFIED ORGANISM Present on Admission: Yes Comment: Antibiotics (2) Alcohol abuse Acute F10.10 - ALCOHOL ABUSE, UNCOMPLICATED Present on Admission: Yes Comment: Patient started drinking again 2 weeks ago after having quit for 20 years. Patient is very tearful and sorrowful about the fact that she started again. Plan: Detox protocol. Patient on prn Ativan for breakthrough symptoms. Magnesium, phosphorus, other labs ordered. Give IV thiamine/folate/MVI now, then eventually start patient on PO thiamine/ MVI. Nurse to monitor patient closely and check withdrawal symptom scores. Patient advised to stop drinking but to do so under medical supervision because of DT's risk. Patient advised to take thiamine and multivitamin daily after discharge. Patient encouraged to return to Alcoholics Anonymous meetings and to reconnect with her sponsor. (3) COPD exacerbation Acute J44.1 - CHRONIC OBSTRUCTIVE PULMONARY DISEASE W (ACUTE) EXACERBATION Present on Admission: Yes Comment: COPD exacerbation, severe. Plan: Nebs of Duoneb q 6 hours scheduled and albuterol q 2 hours prn. Sputum culture ordered. IV ceftriaxone and IV azithromycin. IV methylprednisolone. Continuous oxygen support. Keep sats below 95% due to COPD. (4) Constipation Acute K59.00 - CONSTIPATION, UNSPECIFIED slow transit constipation K59.01 - Slow transit constipation Comment: miralax and mg citrate should get things moving. (5) Dyspnea Acute R06.00 - DYSPNEA, UNSPECIFIED Present on Admission: Yes dyspnea on exertion R06.09 - Other forms of dyspnea Comment: Plan: O2 by [place] prn. (6) Tobacco abuse Acute Z72.0 - TOBACCO USE Present on Admission: Yes Comment: Counseled to quit and spent more than 10 minutes time discussing this. (7) Autoimmune hepatitis Acute K75.4 - AUTOIMMUNE HEPATITIS Comment: Sees Dr. Stein at [facility] since 2010 for her autoimmune hepatitis. Unfortunately she also imbibes in alcohol which complicates her liver disease. (8) Malignant melanoma of right forearm Chronic C43.61 - MALIGNANT MELANOMA OF RIGHT UPPER LIMB, INCLUDING SHOULDER Present on Admission: Yes Comment: Indicates to me that she thinks they got all of her melanoma of the right forearm with surgery. Discharge Disposition: Home Discharge Condition: Improved Cognitive Discharge Status: Unimpaired Fuctional Discharge Status: Independent Physician Follow up/Referrals: Kiara Muhammad MD [Primary Care Provider] - One Week Home Medications / New Prescriptions: New Azithromycin [Zithromax] 500 mg PO DAILY(ANETA) #3 tablet Cefdinir [Omnicef] 300 mg PO BID #10 capsule Fexofenadine HCl [Socorro] 180 mg PO DAILY #30 tablet Fluticasone Propionate [Flonase] 1 sprays SCOTTIE BID #1 bottle PEG-Electrolytes (Miralax) [Miralax] 17 gm PO 1200,1800 #60 pack Prednisone [Sterapred DS 10 mg/12 day pack] 48 tab PO DIR #1 pack Probiotic Blend [Angelika Q] 1 tab PO BIDLS #30 tablet Pseudoephedrine [Sudafed] 120 mg PO Q12 #30 crc Thiamine [Thiamine, Vitamin B-1] 100 mg PO DAILY@1200 #100 tablet Tramadol HCl [Ultram] 100 mg PO Q6H #30 tab Albuterol/Ipratropium Neb [Duoneb] 3 ml NEB Q6H PRN #1 box PRN Reason: Shortness Of Breath Continue Lorazepam [Ativan] 0.5 - 1 mg PO DAILY PRN PRN Reason: Anxiety Gabapentin 600 mg PO TID Alendronate Sodium [Fosamax] 70 mg PO FR Meloxicam 15 mg PO DAILY Cyclobenzaprine HCl [Flexeril] 5 mg PO Q8H PRN PRN Reason: Muscle Spasms Fish Oil/Dha/Epa [Fish Oil 1,200 mg Fish Oil] 1 cap PO BID Multivitamin [One-A-Day Essential] 1 tab PO DAILY Levothyroxine [Synthroid, Levoxyl] 50 mcg PO DAILY Ropinirole HCl [Requip] 1 mg PO HS Bupropion HCl [Wellbutrin Sr] 200 mg PO BID Calcium Carbonate/Vitamin D3 [Calcium 600-Vit D3 800 Tablet] 1 tab PO BID Paroxetine HCl [Paxil] 40 mg PO DAILY Albuterol Sulfate [Ventolin Hfa] 2 puff INH Q4H PRN PRN Reason: SHORTNESS OF BREATH Budesonide/Formoterol Fumarate [Symbicort 160-4.5 Mcg Inhaler] 2 puff INH BID Ubidecarenone [Coq-10] 100 mg PO DAILY Magnesium 250 mg PO TID Biotin 1 mg PO TID Oxycodone (OxyCONTIN) Ext Rel [Oxycontin] 20 mg PO BID Omeprazole [Prilosec] 20 mg PO DAILY Vit A,C & E/Lutein/Minerals [Vision Vitamins Tablet] 1 each PO DAILY Trazodone HCl [Desyrel] 75 mg PO QHS Nebulizer [Erapid Nebulizer] 1 each MC .UNKNOWN Discontinued Zinc 50 mg PO BID Loratadine/Pseudoephedrine Sul [Claritin-D 12 Hour Tab SA] 1 tab PO Q12H Ketorolac Tromethamine [Toradol] 10 mg PO Q6H PRN #12 tab PRN Reason: Pain No Action Ascorbic Acid [Vitamin C] 1,000 mg PO BID Promethazine [Phenergan] 25 mg PO QID PRN PRN Reason: Nausea Albuterol Sulfate [Proventil, Ventolin] 2.5 mg NEB Q6H Discharge Home Medication List Ascorbic Acid [Vitamin C] 1,000 mg PO BID 02/20/14 [History Confirmed 04/15/16 Last Taken 04/13/16] Gabapentin 600 mg PO TID 02/20/14 [History Confirmed 04/15/16 Last Taken ] Lorazepam [Ativan] 0.5 - 1 mg PO DAILY PRN 02/20/14 [History Confirmed 04/15/16 Last Taken 04/13/16] Alendronate Sodium [Fosamax] 70 mg PO FR 01/14/15 [History Confirmed 04/15/16 Last Taken 04/02/16] Bupropion HCl [Wellbutrin Sr] 200 mg PO BID 01/14/15 [History Confirmed Last Taken 04/13/16] Calcium Carbonate/Vitamin D3 [Calcium 600-Vit D3 800 Tablet] 1 tab PO BID [History Confirmed 04/15/16 Last Taken 04/13/16] Cyclobenzaprine HCl [Flexeril] 5 mg PO Q8H PRN 01/14/15 [History Confirmed 04/15 Last Taken 04/13/16] Fish Oil/Dha/Epa [Fish Oil 1,200 mg Fish Oil] 1 cap PO BID 01/14/15 [History Confirmed 04/15/16 Last Taken 04/13/16] Levothyroxine [Synthroid, Levoxyl] 50 mcg PO DAILY 01/14/15 [History Confirmed 04/15/16 Last Taken 04/13/16] Meloxicam 15 mg PO DAILY 01/14/15 [History Confirmed 04/15/16 Last Taken ] Multivitamin [One-A-Day Essential] 1 tab PO DAILY 01/14/15 [History Confirmed Last Taken 04/13/16] Promethazine [Phenergan] 25 mg PO QID PRN 01/14/15 [History Confirmed 04/15/16 Last Taken 04/09/16] Ropinirole HCl [Requip] 1 mg PO HS 01/14/15 [History Confirmed 04/15/16 Last Taken 04/13/16] Paroxetine HCl [Paxil] 40 mg PO DAILY 05/30/15 [History Confirmed 04/15/16 Last Taken 04/13/16] Albuterol Sulfate [Ventolin Hfa] 2 puff INH Q4H PRN 04/14/16 [History Confirmed 04/15/16 Last Taken 04/13/16] Biotin 1 mg PO TID 04/14/16 [History Confirmed 04/15/16 Last Taken 04/13/16] Budesonide/Formoterol Fumarate [Symbicort 160-4.5 Mcg Inhaler] 2 puff INH BID [History Confirmed 04/15/16 Last Taken 04/13/16] Magnesium 250 mg PO TID 04/14/16 [History Confirmed 04/15/16 Last Taken 04/13/16 ] Omeprazole [Prilosec] 20 mg PO DAILY 04/14/16 [History Confirmed 04/15/16 Last Taken 04/13/16] Oxycodone (OxyCONTIN) Ext Rel [Oxycontin] 20 mg PO BID 04/14/16 [History Confirmed 04/15/16 Last Taken 04/13/16] Ubidecarenone [Coq-10] 100 mg PO DAILY 04/14/16 [History Confirmed 04/15/16 Last Taken 04/13/16] Vit A,C & E/Lutein/Minerals [Vision Vitamins Tablet] 1 each PO DAILY 04/14/16 [ History Confirmed 04/15/16 Last Taken 04/13/16] Albuterol Sulfate [Proventil, Ventolin] 2.5 mg NEB Q6H 04/15/16 [History Confirmed 04/15/16 Last Taken Unknown] Nebulizer [Erapid Nebulizer] 1 each MC .UNKNOWN 04/15/16 [History Confirmed 04/30 Last Taken Unknown] Trazodone HCl [Desyrel] 75 mg PO QHS 04/15/16 [History Confirmed 04/15/16 Last Taken 04/14/16] Albuterol/Ipratropium Neb [Duoneb] 3 ml NEB Q6H PRN #1 box 04/17/16 [Rx Last Taken Unknown] Azithromycin [Zithromax] 500 mg PO DAILY(ANETA) #3 tablet 04/17/16 [Rx Last Taken Unknown] Cefdinir [Omnicef] 300 mg PO BID #10 capsule 04/17/16 [Rx Last Taken Unknown] Fexofenadine HCl [Socorro] 180 mg PO DAILY #30 tablet 04/17/16 [Rx Last Taken Unknown] Fluticasone Propionate [Flonase] 1 sprays SCOTTIE BID #1 bottle 04/17/16 [Rx Last Taken Unknown] PEG-Electrolytes (Miralax) [Miralax] 17 gm PO 1200,1800 #60 pack 04/17/16 [Rx Last Taken Unknown] Prednisone [Sterapred DS 10 mg/12 day pack] 48 tab PO DIR #1 pack 04/17/16 [ Rx Last Taken Unknown] Probiotic Blend [Angelika Q] 1 tab PO BIDLS #30 tablet 04/17/16 [Rx Last Taken Unknown] Pseudoephedrine [Sudafed] 120 mg PO Q12 #30 crc 04/17/16 [Rx Last Taken Unknown] Thiamine [Thiamine, Vitamin B-1] 100 mg PO DAILY@1200 #100 tablet 04/17/16 [Rx Last Taken Unknown] Tramadol HCl [Ultram] 100 mg PO Q6H #30 tab 04/17/16 [Rx Last Taken Unknown] 04/14/16 05:00 04/14/16 05:00 O2 Device: Nasal Cannula Oxygen Flow Rate: 2 Oxygen to be used after Discharge: Continuous Diet at Discharge: Heart Healthy Activity: As Tolerated Discontinue use of:: Alcohol, All Illegal Substances, All Types of Tobacco - DC Summary Notes HPI/Notes: The patient is a 56 yo woman with COPD who presents with progressive shortness of breath. It started shortly after [place] (over a month ago), and she has received multiple treatments by her primary care office and the urgent care. The treatments were prednisone tapers and various antibiotics. She has been using her inhalers/nebulizer but she did decrease use of these. Last night, she became much more short of breath, and felt like she could not breathe at all. She said she has an old oxygen tank at home from about 2014, so she tried to use it overnight, but when she got up in the morning, she could not breathe at all. She was using her nebulizer and she was so weak she could not move. She reports she continued to stay at home. She has a pulse oxygen machine at home and it showed O2 sats of 78%. Onset: Over 1 month ago but worse in the last 2 days. Duration: intermittent. Character: severe shortness of breath, even while sitting. Alleviated by: Nothing. Exacerbated by: walking. Associated Symptoms: Coughing. Wheezing. Shortness of breath. Diaphoresis. Treatments: none at home except usual medications. The patient reports that she used to drink alcohol heavily but quit 20 years ago , but then restarted about 2 weeks ago. She states she has been drinking most days since then, about 2-5 cans of beer per day. Her last dink was 2 days ago. Hospital Course Note:: Discharge summary on patient named BROOKE GREEN admitted to [facility] on 04/14/16 by Marky Sharp MD. Date of discharge is 2016. She was admitted with COPD exacerbation increased shortness breath respiratory failure thrombocytopenia tobacco abuse and recent alcohol abuse. She was started on Rocephin Zithromax as well as initiating supplemental O2 for her respiratory failure. She was advised to quit smoking cigarettes and stop drinking alcohol. She promised to do both. She responded nicely to the therapy given her during hospitalization ready go home today reaching maximal medical benefit. Follow-up will be achieved with the primary care provider Dr. Muhammad. CC: Dr. Jb Stein gastroenterology at [facility]. Total Time: 40 min Code: 24548 (>30min.) - Physical Exam Vital Signs: Last Vital Signs Temp 98.1 F 04/17/16 06:00 Pulse 82 04/17/16 06:00 Resp 18 04/17/16 06:00 BP 119/65 04/17/16 06:00 Pulse Ox 96 04/17/16 07:45 Oxygen Pulse Oxygen Saturation 96 O2 Device Nasal Cannula Oxygen Flow Rate 2 Fraction of Inspired Oxygen ( FIO2) Constitutional: Alert (Awake), No apparent distress Oriented to: Time, Person, Place - HEENT Head: Normal Eye: Normal Oropharynx: Normal Tympanic Membrane: Normal ENT EAC: Normal Nose: No Symptoms Reported - Respiratory/Cardiovascular Respiratory: Diminished, Rhonchi (w/ cough), Wheezes - GI Palpation: Normal Tenderness: Non tender Osman's Sign: Negative - Musculoskeletal Back: Normal Extremities: Normal - Integumentary Skin: Normal (Warm dry no rashes) Lymphatics: Normal - Neurologic Memory Impaired: Normal Motor Function: Normal (Motor 5/5 throughout.Normal tone, Pulses 2+ No cyanosis or edema, FROM) Cranial Nerve: Normal (CN II-XII intact sensation, strength 5/5) Cerebellar: Normal Mood Description: Normal Thought: Coherent Perception: Normal
[2016-04-17] MEDS ORDERED: VITAMINS,PRENATAL TABLET PO SCH (12:00)
[2016-04-17] MEDS ORDERED: THIAMINE 100 MG TAB PO SCH (12:00)
[2016-04-17 13:47] VITALS: BP 156/88; PULSE 83; TEMP 98.7
== END 2016-04-17 15:37 | disposition home or self-care (01) | DRG 194 ==
LOC: ED 22:14 → MPS3 04-14 02:45
PROVIDERS: ADMIT Internal Medicine; ATTEND Internal Medicine
PROC: 4A033R1 Measurement of Arterial Saturation, Peripheral, Percutaneous Approach (ICD-10-PCS; principal; 2016-04-13)
PROC: HZ2ZZZZ Detoxification Services for Substance Abuse Treatment (ICD-10-PCS; 2016-04-14)
DX: J18.0 Bronchopneumonia, unspecified organism (principal); J44.1 Chronic obstructive pulmonary disease with (acute) exacerbation; D69.6 Thrombocytopenia, unspecified; K75.4 Autoimmune hepatitis; F10.10 Alcohol abuse, uncomplicated; K59.01 Slow transit constipation; F41.9 Anxiety disorder, unspecified; F31.9 Bipolar disorder, unspecified; Z85.820 Personal history of malignant melanoma of skin; Z72.0 Tobacco use; Z90.49 Acquired absence of other specified parts of digestive tract; Z88.5 Allergy status to narcotic agent
CPT/HCPCS: 36415; 36600; 71020; 80048; 80053; 80307; 82805; 83735; 84100; 84484; 85025; 85027; 85610; 85730; 93005; 94640; 96361; 96365; 96366; 96372; 98960; 99283; 99406; A9153; G0237; J0456; J0696; J1650; J2405; J2930; J3411; J3490; J7060; J7070; J7620